=== PATIENT | female | born 1985 | race Caucasian/White ===

== ENCOUNTER 2018-04-23 07:32 | Outpatient (CLI) | payer MEDICAID ==
--- NOTE | 2018-04-23 09:09 | Ultrasound Report ---
Reason: ENCOUNTER FOR SUPRVSN OF NORMAL , THIRD T Procedure Date: 04/23/2018 Accession Number: [id number] / [id number] Procedure: US - OB Detailed Eval CPT Code: FULL RESULT: EXAM: COMPLETE OBSTETRICAL ULTRASOUND EXAM DATE: 04/23/2018 07:46 AM. CLINICAL HISTORY: anatomic survey. COMPARISON: None. TECHNIQUE: Real-time sonographic evaluation of the fetus performed by the decontaminator. Multiple business development representative static images were saved for review. Additional transvaginal imaging to more accurately evaluate cervical length/placental position/etc. DATING: Established EGA 32 weeks 5 days with SHE 06/13/2018 based on LMP. EGA 35 weeks 1 day with SHE May 2018 based on the current ultrasound. GENERAL EVALUATION Sweeney . Cardiac activity: 124 bpm. movement: Visualized. Presentation: Cephalic. Placenta: Posterior position. No evidence for previa. Umbilical cord: 3 vessel cord. Central placental cord origin. Amniotic fluid: [place] 12.4. MVP 3.9 cm. BIOMETRY Bi-Parietal Diameter (BPD): 8.9 cm, 35 weeks 6 days Head Circumference (HC): 32.3 cm, 36 weeks 4 days Abdominal Circumference (AC): 31.5 cm, 35 weeks 3 days Femur Length (FL): 6.3 cm, 32 weeks 4 days Estimated Weight: 2521 gm, 93rd LMP percentile ANATOMY The intracranial structures, profile, face/nose/lips, spine, 4 chamber heart and outflow tracts, stomach, abdominal wall and cord insertion, diaphragm, kidneys, bladder, and extremities were visualized and demonstrate no abnormality. MATERNAL STRUCTURES Uterus: Unremarkable. Cervix: Long and closed. Transabdominal length 4.8 cm. Right ovary/adnexa: Unremarkable. Left ovary/adnexa: Unremarkable. Free fluid: None. IMPRESSION: 1. Sweeney live intrauterine with gestational age 35 weeks 1 day based on current ultrasound. 2. Estimated weight is within expected limits. 3. Normal anatomic survey. No anatomic abnormalities are detected at this time. Extremity evaluation is somewhat limited, however, due to advanced age. RADIA
== END 2018-04-23 07:33 | disposition home or self-care (01) ==
LOC: DI 07:32
PROVIDERS: ATTEND Midwife
DX: Z34.83 Encounter for supervision of other normal pregnancy, third trimester (principal)
CPT/HCPCS: 76811

== ENCOUNTER 2018-12-01 08:26 | Outpatient (CLI) | payer SELFPAY | END 2018-12-01 08:27 | disposition EMS.NT | LOC: EMS 08:26 | PROVIDERS: ATTEND Surgery | DX: H53.8 Other visual disturbances (principal); R41.0 Disorientation, unspecified; S40.211A Abrasion of right shoulder, initial encounter; S00.81XA Abrasion of other part of head, initial encounter; V18.4XXA Pedal cycle driver injured in noncollision transport accident in traffic accident, initial encounter; Y93.55 Activity, bike riding; Y92.414 Local residential or business street as the place of occurrence of the external cause ==